=== PATIENT | female | born 1950 | race African-American/Black ===

== ENCOUNTER 2020-06-10 04:21 | Day surgery (SDC) | payer BC, OTHER ==
[2020-06-10] MEDS ORDERED: LIDOCAINE HCL/PF 1% SDV 5ML VIAL ONE (07:14)
[2020-06-10] MEDS ORDERED: BUPIVACAINE HCL/PF 0.75% 10 ML VIAL ONE (07:14)
[2020-06-10] MEDS ORDERED: TRIAMCINOLONE ACET 40MG/1ML VIAL ONE (07:14)
[2020-06-10] MEDS ORDERED: DEXAMETHASONE SOD PHOSPHATE/PF 10 MG/ML SDV ONE (07:14)
[2020-06-10 07:29] VITALS: BMI 29.1
[2020-06-10 09:22] VITALS: BP 151/74; PULSE 61; TEMP 97.3
== END 2020-06-10 09:15 | disposition home or self-care (01) ==
LOC: JASU-SURG 04:21
PROVIDERS: ATTEND Pain Medicine Pain Medicine
DX: Z53.8 Procedure and treatment not carried out for other reasons (principal)

== ENCOUNTER 2020-10-15 08:43 | Emergency (ER) | payer BC, OTHER ==
[2020-10-15 08:48] VITALS: BP 147/79; PULSE 74; TEMP 97.6; BMI 29.0
[2020-10-15] MEDS ORDERED: CYCLOBENZAPRINE HCL 10 MG TABLET (FP) ONE (08:57)
[2020-10-15] MEDS ORDERED: KETOROLAC TROMETHAMINE 15 MG/ML VIAL ONE (08:58)
[2020-10-15] MEDS ORDERED: KETOROLAC TROMETHAMINE 60 MG/2 ML VIAL IM ONE (08:59)
[2020-10-15] MEDS ORDERED: LIDOCAINE 5% TOPICAL PATCH TP ONE (09:00)
[2020-10-15] MEDS ORDERED: CYCLOBENZAPRINE HCL 10 MG TABLET (FP) PO ONE (09:00)
== END 2020-10-15 10:42 | disposition home or self-care (01) ==
LOC: JERFT 08:43
PROC: 3E023GC Introduction of Other Therapeutic Substance into Muscle, Percutaneous Approach (ICD-10-PCS; principal; 2020-10-15)
DX: M54.41 Lumbago with sciatica, right side (principal); M54.42 Lumbago with sciatica, left side; M79.10 Myalgia, unspecified site
CPT/HCPCS: 99284-25

== ENCOUNTER 2021-03-23 10:35 | Emergency (ER) | payer OTHER ==
[2021-03-23 11:04] VITALS: BP 133/72; PULSE 64; TEMP 97.6; BMI 29.0
[2021-03-23] MEDS ORDERED: KETOROLAC TROMETHAMINE 30 MG/1 ML VIAL IM ONE (12:48)
[2021-03-23] MEDS ORDERED: KETOROLAC TROMETHAMINE 30 MG/1 ML VIAL ONE (12:51)
== END 2021-03-23 15:00 | disposition home or self-care (01) ==
LOC: JER 10:35
PROC: 3E023GC Introduction of Other Therapeutic Substance into Muscle, Percutaneous Approach (ICD-10-PCS; principal; 2021-03-23)
DX: M54.41 Lumbago with sciatica, right side (principal)
CPT/HCPCS: 96372; 99284-25

== ENCOUNTER 2021-04-07 04:38 | Day surgery (SDC) | payer OTHER ==
[2021-04-06 10:10] VITALS: BMI 29.0
[2021-04-07] MEDS ORDERED: BUPIVACAINE HCL/PF 0.75% 10 ML VIAL ONE (07:18)
[2021-04-07] MEDS ORDERED: LIDOCAINE HCL/PF 1% SDV 5ML VIAL ONE (07:18)
[2021-04-07] MEDS ORDERED: IOHEXOL 180 MG/1 ML ML IJ ONE (12:28)
[2021-04-07] MEDS ORDERED: LIDOCAINE 1% P/F 10 MG/ML VIAL INF ONE (12:28)
[2021-04-07] MEDS ORDERED: BUPIVACAINE HCL/PF 0.75% 10 ML VIAL NR ONE (12:28)
[2021-04-07 12:54] VITALS: BP 162/79; PULSE 75; TEMP 98.6
== END 2021-04-07 13:17 | disposition home or self-care (01) ==
LOC: JASU-SURG 04:38
PROVIDERS: ATTEND Pain Medicine Pain Medicine
PROC: BR16YZZ Fluoroscopy of Lumbar Facet Joint(s) using Other Contrast (ICD-10-PCS; 2021-04-07)
PROC: 3E0T3BZ Introduction of Anesthetic Agent into Peripheral Nerves and Plexi, Percutaneous Approach (ICD-10-PCS; principal; 2021-04-07 11:00)
DX: M47.816 Spondylosis without myelopathy or radiculopathy, lumbar region (principal)
CPT/HCPCS: 76000-TC-FY

== ENCOUNTER 2021-05-16 04:53 | Day surgery (SDC) | payer OTHER ==
[2021-05-15 09:58] VITALS: BMI 29.7
[2021-05-16] MEDS ORDERED: LIDOCAINE HCL 1% PRESERVATIVE FREE - 30ML VIAL IJ ONE (10:05)
[2021-05-16] MEDS ORDERED: DEXAMETHASONE SOD PHOSPHATE 10 MG/1 ML VIAL IVPB ONE (10:05)
[2021-05-16] MEDS ORDERED: LIDOCAINE HCL/PF 1% SDV 5ML VIAL ONE (10:13)
[2021-05-16 12:02] VITALS: BP 138/70; PULSE 70; TEMP 98
== END 2021-05-16 11:45 | disposition home or self-care (01) ==
LOC: JASU-SURG 04:53
PROVIDERS: ATTEND Pain Medicine Pain Medicine
PROC: 3E0R33Z Introduction of Anti-inflammatory into Spinal Canal, Percutaneous Approach (ICD-10-PCS; 2021-05-16)
PROC: 3E0R3BZ Introduction of Anesthetic Agent into Spinal Canal, Percutaneous Approach (ICD-10-PCS; principal; 2021-05-16 10:30)
DX: M54.16 Radiculopathy, lumbar region (principal)
CPT/HCPCS: 76000-TC-FY; J1100

== ENCOUNTER 2021-09-26 10:28 | Emergency (ER) | payer OTHER ==
[2021-09-26 10:41] VITALS: BP 162/76; PULSE 73; TEMP 97.6; BMI 29.0
[2021-09-26] MEDS ORDERED: METHOCARBAMOL 500 MG TABLET PO ONE (11:14)
[2021-09-26] MEDS ORDERED: LIDOCAINE 5% TOPICAL PATCH TP ONE (11:14)
[2021-09-26] MEDS ORDERED: ACETAMINOPHEN 325 MG TABLET (FP) PO ONE (11:14)
[2021-09-26] MEDS ORDERED: KETOROLAC TROMETHAMINE 60 MG/2 ML VIAL IM ONE (11:14)
[2021-09-26] MEDS ORDERED: KETOROLAC TROMETHAMINE 30 MG/1 ML VIAL ONE ×2 (11:27)
[2021-09-26] MEDS ORDERED: METHOCARBAMOL 500 MG TABLET ONE (11:27)
[2021-09-26] MEDS ORDERED: LIDOCAINE 5% TOPICAL PATCH ONE (11:27)
[2021-09-26] MEDS ORDERED: ACETAMINOPHEN 325 MG TABLET (FP) ONE (11:27)
[2021-09-26] MEDS ORDERED: LIDOCAINE PATCH REMOVAL MC ONE (22:00)
== END 2021-09-26 12:10 | disposition home or self-care (01) ==
LOC: JER 10:28
PROC: 3E0233Z Introduction of Anti-inflammatory into Muscle, Percutaneous Approach (ICD-10-PCS; principal; 2021-09-26)
DX: M54.41 Lumbago with sciatica, right side (principal)
CPT/HCPCS: 99284-25

== ENCOUNTER 2022-01-30 10:47 | Emergency (ER) | payer OTHER ==
[2022-01-30 11:23] VITALS: BP 134/83; PULSE 57; TEMP 97.8; BMI 28.1
[2022-01-30] MEDS ORDERED: KETOROLAC TROMETHAMINE 30 MG/1 ML VIAL IM ONE (12:50)
[2022-01-30] MEDS ORDERED: METHOCARBAMOL 500 MG TABLET PO ONE (12:50)
[2022-01-30] MEDS ORDERED: METHOCARBAMOL 500 MG TABLET ONE (13:11)
[2022-01-30] MEDS ORDERED: KETOROLAC TROMETHAMINE 30 MG/1 ML VIAL ONE ×2 (13:11→13:12)
== END 2022-01-30 14:20 | disposition home or self-care (01) ==
LOC: JERFT 10:47
PROC: 3E023GC Introduction of Other Therapeutic Substance into Muscle, Percutaneous Approach (ICD-10-PCS; principal; 2022-01-30)
DX: M54.50 Low back pain, unspecified (principal)
CPT/HCPCS: 99284-25

== ENCOUNTER 2023-12-10 09:58 | Emergency (ER) | payer OTHER ==
[2023-12-10 10:04] VITALS: BP 159/71; PULSE 64; RESP 18; TEMP 97.9; BMI 27.1
[2023-12-10] MEDS ORDERED: METHOCARBAMOL 500 MG TABLET ONE (11:03)
[2023-12-10] MEDS ORDERED: KETOROLAC TROMETHAMINE 15 MG/ML VIAL ONE ×2 (11:04)
[2023-12-10] MEDS: KETOROLAC TROMETHAMINE 15 MG/ML VIAL IM ONE (11:08)
[2023-12-10] MEDS: METHOCARBAMOL 500 MG TABLET PO ONE (11:08)
[2023-12-10 11:35] LABS: EPI CELLS 11 /uL (0-25.1); HYALINE CASTS 0 /uL (0-3.1); URINE APPEARANCE CLOUDY; URINE BACTERIA >9,000 /uL (0-1359); URINE BILIRUBIN NEGATIVE (NEGATIVE); URINE COLOR YELLOW; URINE GLUCOSE (UA) NEGATIVE (NEGATIVE); URINE KETONE NEGATIVE (NEGATIVE); URINE LEUK ESTERASE 2+ (NEGATIVE); URINE NITRITE POSITIVE (NEGATIVE); URINE PROTEIN NEGATIVE (NEGATIVE); URINE RBC 33 /uL (0-23.9); URINE UROBILINOGEN 0.2 mg/dL (0.2-1.0); URINE WBC 921 /uL (0-25.8)
== END 2023-12-10 11:44 | disposition home or self-care (01) ==
LOC: JERFT 09:58
PROC: 3E0133Z Introduction of Anti-inflammatory into Subcutaneous Tissue, Percutaneous Approach (ICD-10-PCS; principal; 2023-12-10)
DX: N39.0 Urinary tract infection, site not specified (principal); M54.50 Low back pain, unspecified; G89.29 Other chronic pain; R30.0 Dysuria; R35.0 Frequency of micturition
CPT/HCPCS: 81003; 87086; 87186; 96372; 99284-25

== ENCOUNTER 2024-06-04 05:18 | Day surgery (SDC) | payer OTHER ==
[2024-06-02 14:56] VITALS: BMI 29.9
[2024-06-04] MEDS ORDERED: ACETAMINOPHEN 500 MG TABLET (FP) PO PRN (09:21)
[2024-06-04] MEDS: LIDOCAINE HCL 1% PRESERVATIVE FREE - 30ML VIAL IJ ONE ×2 (15:02→15:09)
[2024-06-04] MEDS: IOHEXOL 180 MG/1 ML ML IJ ONE (15:05)
[2024-06-04] MEDS: DEXAMETHASONE SOD PHOSPHATE 10 MG/1 ML VIAL IVPUSH ONE (15:06)
[2024-06-04 16:05] VITALS: BP 163/61; PULSE 54; RESP 18; TEMP 97.3
== END 2024-06-04 15:45 | disposition home or self-care (01) ==
LOC: JASU-SURG 05:18
PROVIDERS: ATTEND Pain Medicine Pain Medicine
PROC: 3E0R3BZ Introduction of Anesthetic Agent into Spinal Canal, Percutaneous Approach (ICD-10-PCS; 2024-06-04)
PROC: 3E0R33Z Introduction of Anti-inflammatory into Spinal Canal, Percutaneous Approach (ICD-10-PCS; principal; 2024-06-04 15:15)
DX: M54.16 Radiculopathy, lumbar region (principal)
CPT/HCPCS: 76000-TC-FY; J1100

== ENCOUNTER 2024-07-03 04:49 | Day surgery (SDC) | payer OTHER ==
[2024-07-02 17:14] VITALS: BMI 28.1
[2024-07-03] MEDS ORDERED: DEXAMETHASONE SOD PHOSPHATE 10 MG/1 ML VIAL ONE (07:22)
[2024-07-03] MEDS ORDERED: LIDOCAINE HCL/PF 1% SDV 5ML VIAL ONE ×2 (07:22→07:23)
[2024-07-03] MEDS: IOHEXOL 180 MG/1 ML ML IJ ONE (10:12)
[2024-07-03] MEDS: DEXAMETHASONE SOD PHOSPHATE 10 MG/1 ML VIAL IVPUSH ONE (10:12)
[2024-07-03] MEDS: LIDOCAINE HCL 1% PRESERVATIVE FREE - 30ML VIAL IJ ONE (10:12)
[2024-07-03 10:44] VITALS: RESP 18
[2024-07-03 11:10] VITALS: BP 175/68; PULSE 57; TEMP 97
[2024-07-03] MEDS ORDERED: ACETAMINOPHEN 500 MG TABLET (FP) PO PRN (12:20)
== END 2024-07-03 11:10 | disposition home or self-care (01) ==
LOC: JASU-SURG 04:49
PROVIDERS: ATTEND Pain Medicine Pain Medicine
PROC: 3E0R3BZ Introduction of Anesthetic Agent into Spinal Canal, Percutaneous Approach (ICD-10-PCS; 2024-07-03)
PROC: 3E0R33Z Introduction of Anti-inflammatory into Spinal Canal, Percutaneous Approach (ICD-10-PCS; principal; 2024-07-03 11:45)
DX: M54.16 Radiculopathy, lumbar region (principal)
CPT/HCPCS: 76000-TC-FY; J1100

== ENCOUNTER 2024-10-22 07:05 | Day surgery (SDC) | payer OTHER ==
[2024-10-21 14:23] VITALS: BMI 29.7
[2024-10-22] MEDS ORDERED: ACETAMINOPHEN 500 MG TABLET (FP) PO PRN (09:12)
[2024-10-22] MEDS: DEXAMETHASONE SOD PHOSPHATE 10 MG/1 ML VIAL IVPUSH ONE ×2 (12:15)
[2024-10-22] MEDS: LIDOCAINE HCL 1%, 10 MG/ML (20ML VIAL) NR ONE ×2 (12:15)
[2024-10-22] MEDS: IOHEXOL 180 MG/1 ML ML IJ ONE ×2 (12:15)
[2024-10-22 12:46] VITALS: BP 140/61; RESP 20; TEMP 98
[2024-10-22 13:50] VITALS: PULSE 58
== END 2024-10-22 14:03 | disposition home or self-care (01) ==
LOC: JASU-SURG 07:05
PROVIDERS: ATTEND Pain Medicine Pain Medicine
PROC: 3E0R3BZ Introduction of Anesthetic Agent into Spinal Canal, Percutaneous Approach (ICD-10-PCS; 2024-10-22)
PROC: 3E0R33Z Introduction of Anti-inflammatory into Spinal Canal, Percutaneous Approach (ICD-10-PCS; principal; 2024-10-22 12:15)
DX: M54.16 Radiculopathy, lumbar region (principal)
CPT/HCPCS: 76000-TC-FY; J1100

== ENCOUNTER 2025-02-10 13:27 | Emergency (ER) | payer OTHER ==
[2025-02-10 13:36] VITALS: BP 169/65; PULSE 63; RESP 20; TEMP 98.1; BMI 30.5
[2025-02-10 15:12] LABS: ABSOLUTE IMMATURE GRANULOCYTES 0.02 x10^3/uL (0.0-0.031); BASOPHILS # 0.03 x10^3/uL (0.01-0.08); EOSINOPHIL % 0.9 % (0.7-5.8); EOSINOPHILS # 0.06 x10^3/uL (0.04-0.36); MCHC 31.4 g/dl (32.2-35.5); MEAN CELL VOLUME 89.2 fl (79.4-94.8); MEAN PLT VOLUME 8.9 fl (9.4-12.3); MONOCYTE # 0.59 x10^3/uL (0.24-0.86); MONOCYTE % 8.7 % (4.7-12.5); RDW 13.5 % (12.4-16.6)
[2025-02-10] MEDS ORDERED: LORATADINE 10 MG TABLET ONE (15:16)
[2025-02-10] MEDS ORDERED: ACETAMINOPHEN INJECTION 100 ML ONE (15:17)
[2025-02-10] MEDS: ACETAMINOPHEN 1000 MG/100 ML BAG IVPB ONE (15:24)
[2025-02-10] MEDS: LORATADINE 10 MG TABLET PO ONE (15:29)
[2025-02-10 15:43] LABS: CO2 30.0 mmol/L (21-32); GLUCOSE,RANDOM 110.0 mg/dL (74-106)
[2025-02-10 15:46] LABS: CREATININE 1.3 mg/dL (0.55-1.3); SGOT/AST 13.0 U/L (15-37); SGPT/ALT 19.0 U/L (13-61)
[2025-02-10 15:47] LABS: TOT PROT 6.9 g/dl (6.4-8.2)
[2025-02-10 15:49] LABS: ALK PHOS 114.0 U/L (45-117)
[2025-02-10] MEDS ORDERED: KETOROLAC TROMETHAMINE 15 MG/ML VIAL ONE (16:27)
[2025-02-10] MEDS ORDERED: diphenhydrAMINE HCL 25 MG CAPSULE (FP) PO ONE (16:27)
[2025-02-10] MEDS: KETOROLAC TROMETHAMINE 15 MG/ML VIAL IVPUSH ONE (16:45)
[2025-02-10] MEDS: diphenhydrAMINE HCL 25 MG CAPSULE (FP) PO ONE (16:46)
[2025-02-10 18:00] LABS: HIV INTERPRETATION NEGATIVE (NEGATIVE)
[2025-02-10 18:02] LABS: HCV DIAGNOSTIC IN-HOUSE W/RFLX NON-REACTIVE (NONREACTIVE)
== END 2025-02-10 16:55 | disposition home or self-care (01) ==
LOC: JER 13:27
PROC: 3E033NZ Introduction of Analgesics, Hypnotics, Sedatives into Peripheral Vein, Percutaneous Approach (ICD-10-PCS; principal; 2025-02-10)
PROC: 3E0333Z Introduction of Anti-inflammatory into Peripheral Vein, Percutaneous Approach (ICD-10-PCS; 2025-02-10)
DX: M54.42 Lumbago with sciatica, left side (principal); G89.29 Other chronic pain; R05.9 Cough, unspecified; R09.82 Postnasal drip; R51.9 Headache, unspecified; R07.9 Chest pain, unspecified
CPT/HCPCS: 36415; 71045-TC-FY; 80053; 83735; 84484; 85025; 86803; 87389; 87637-QW; 93005; 93010; 99285-25